=== PATIENT | female | born 1990 | race Caucasian/White ===

== ENCOUNTER 2017-07-01 21:18 | Inpatient (IN) | payer MEDICAID ==
[~2017-07-01] VITALS: Ht 157.5 cm; Wt 73.5 kg
[2017-07-01] MEDS ORDERED: PNV1TABL76 MT (23:39)
[2017-07-01] MEDS ORDERED: LACTATED RINGERS 1,000 ML IV SCH (23:44)
[2017-07-01] MEDS ORDERED: BUTORPHANOL TARTRATE 2 MG/ML VIAL IV PRN (23:45)
[2017-07-01] MEDS ORDERED: LIDOCAINE HCL/PF 1% 10 MG/ML 5ML VIAL IJ SCH (23:45)
[2017-07-01] MEDS ORDERED: METHYLERGONOVINE MALEATE 0.2 MG/ML IM PRN (23:45)
[2017-07-01] MEDS ORDERED: NALOXONE HCL 0.4 MG/ML 1ML VIAL IM PRN (23:45)
[2017-07-01] MEDS ORDERED: CARBOPROST TROMETHAMINE 250 MCG/ML AMPUL IM PRN (23:45)
[2017-07-02 00:09] LABS: CLARITY URINE CLEAR (CLEAR); COLOR URINE YELLOW (YELLOW); KETONES URINE TRACE (NEGATIVE); LEUKOCYTE ESTERASE URINE 2+ (NEGATIVE); NITRITE URINE NEGATIVE (NEGATIVE); OCCULT BLOOD URINE 3+ (NEGATIVE); PH URINE 5.5 (4.5-8.0); PROTEIN URINE TRACE (NEGATIVE); SPECIFIC GRAVITY URINE 1.032 (1.005-1.030)
[2017-07-02 00:11] LABS: BASOPHILS % 0.4 % (0.0-2.0); EOSINOPHILS % 0.7 % (0.0-5.0); HEMATOCRIT. 27.6 % (36.0-48.0); HEMOGLOBIN. 8.6 g/dL (12.0-16.0); LYMPHOCYTES % 25.3 % (20.0-50.0); MEAN CORPUSCULAR HEMOGLOBIN 21.4 pg (28.0-32.0); MEAN CORPUSCULAR VOLUME 68.4 fL (81.0-99.0); MEAN PLATELET VOLUME 9.4 fl (7.4-10.4); MONOCYTES % 6.6 % (2.0-8.0); PLATELET 293 x1000/uL (130-400); RED BLOOD CELL COUNT 4.03 mill/uL (4.2-5.4); RED CELL DISTRIBUTION WIDTH 16.9 % (11.6-14.6)
[2017-07-02 00:16] LABS: INR 0.9; PARTIAL THROMBOPLASTIN TIME 26.7 sec (23.4-31.0); PROTHROMBIN TIME 9.4 sec (9.4-11.6)
[2017-07-02 00:22] LABS: *AMPHETAMINES SCREEN URINE NEGATIVE (NEGATIVE); *BARBITURATES SCREEN URINE NEGATIVE (NEGATIVE); *BENZODIAZEPINES SCREEN URINE NEGATIVE (NEGATIVE); *COCAINE SCREEN URINE NEGATIVE (NEGATIVE); METHADONE URINE SCREEN NEGATIVE (NEGATIVE); OPIATES URINE SCREEN NEGATIVE (NEGATIVE)
[2017-07-02 00:23] LABS: CANNABINOID URINE SCREEN NEGATIVE (NEGATIVE); PHENCYCLIDINE URINE SCREEN NEGATIVE (NEGATIVE)
[2017-07-02] MEDS: DEXT 5%/LR + PITOCIN 20UNITS/L 1,000 ML IV SCH ×2 (03:20→04:19)
[2017-07-02] MEDS ORDERED: DEXT 5%/LR + PITOCIN 20UNITS/L 1,000 ML IV SCH (04:02)
[2017-07-02] MEDS ORDERED: ACETAMINOPHEN WITH CODEINE 300/30MG TABLET PO PRN ×2 (04:15)
[2017-07-02] MEDS ORDERED: DIPHENHYDRAMINE 25MG CAPSULE PO PRN (04:15)
[2017-07-02] MEDS ORDERED: BISACODYL 10MG SUPP PR PRN (04:15)
[2017-07-02] MEDS ORDERED: LANOLIN OINT 0.25 GM TUBE TOP PRN (04:15)
[2017-07-02] MEDS ORDERED: BENZOCAINE/LANOLIN/ALOE VERA SPRAY TOP PRN (04:15)
[2017-07-02] MEDS ORDERED: HEMORRHOIDAL SUPP PR PRN (04:15)
[2017-07-02] MEDS ORDERED: GLYCERIN/WITCH HAZEL LEAF MEDICATED PAD TOP PRN (04:15)
[2017-07-02 04:30] VITALS: BP 102/59
[2017-07-02 05:00] VITALS: BP 95/51
[2017-07-02 08:30] VITALS: BP 98/74
[2017-07-02] MEDS: IBUPROFEN 400MG TABLET PO PRN ×2 (10:01→23:15)
[2017-07-02] MEDS: PRENATAL VIT/FE FUMARATE/FA TABLET PO SCH (10:01)
[2017-07-02 11:17] LABS: HEPATITIS B SURFACE ANTIGEN NEGATIVE; RUBELLA IGG 6.2 IU/mL (4.99-10)
[2017-07-02 15:54] VITALS: BP 93/53
[2017-07-02] MEDS: DOCUSATE SODIUM 100MG CAPSULE PO SCH (21:04)
[2017-07-02 22:00] VITALS: BP 98/59
[2017-07-03 06:00] VITALS: BP 99/57
[2017-07-03 06:47] LABS: BASOPHILS % 0.5 % (0.0-2.0); HEMATOCRIT. 23.4 % (36.0-48.0); HEMOGLOBIN. 7.2 g/dL (12.0-16.0); MEAN CORPUSCULAR VOLUME 68.5 fL (81.0-99.0); MEAN PLATELET VOLUME 9.4 fl (7.4-10.4); MONOCYTES % 5.7 % (2.0-8.0); NEUTROPHILS % 65.8 % (40.0-76.0); PLATELET 239 x1000/uL (130-400); RED BLOOD CELL COUNT 3.41 mill/uL (4.2-5.4); RED CELL DISTRIBUTION WIDTH 17.1 % (11.6-14.6)
[2017-07-03 08:00] VITALS: BP 91/53
[2017-07-03] MEDS ORDERED: TETANUS, DIPHTHERIA, PERTUSSIS VAC/PF 0.5ML (>7YR OLD) IM ONE ×2 (09:00→10:00)
[2017-07-03] MEDS ORDERED: MEASLES,MUMPS&RUBELLA VACCINE 1 VIAL SUBCUT ONE (09:00)
[2017-07-03] MEDS: PRENATAL VIT/FE FUMARATE/FA TABLET PO SCH (09:24)
[2017-07-03] MEDS: IBUPROFEN 400MG TABLET PO PRN (09:24)
[2017-07-03 13:41] LABS: PLATELET ESTIMATE NORMAL
[2017-07-03] MEDS: FERROUS SULFATE 325MG TABLET PO SCH ×2 (14:28→17:53)
[2017-07-03 15:54] VITALS: BP 102/61
[2017-07-03 20:00] VITALS: BP 105/59
[2017-07-03] MEDS: DOCUSATE SODIUM 100MG CAPSULE PO SCH (21:09)
[2017-07-04 07:30] VITALS: BP 99/61
[2017-07-04] MEDS: PRENATAL VIT/FE FUMARATE/FA TABLET PO SCH (08:13)
[2017-07-04] MEDS: FERROUS SULFATE 325MG TABLET PO SCH (08:13)
== END 2017-07-04 15:15 | disposition home or self-care (01) | DRG 560 ==
LOC: L&D 21:18 → OBSVTOIN 21:18 → 7EST PP/OB 07-02 04:30
PROVIDERS: ADMIT Specialist; ATTEND Specialist
PROC: 10E0XZZ Delivery of Products of Conception, External Approach (ICD-10-PCS; principal; 2017-07-02 02:32)
DX: O99.02 Anemia complicating childbirth (principal); O99.344 Other mental disorders complicating childbirth; O98.52 Other viral diseases complicating childbirth; D64.9 Anemia, unspecified; F32.9 Major depressive disorder, single episode, unspecified; Z3A.40 40 weeks gestation of pregnancy; Z37.0 Single live birth; Z82.49 Family history of ischemic heart disease and other diseases of the circulatory system
CPT/HCPCS: 36415; 80305; 81003; 85025; 85610; 85730; 86592; 86703; 86762; 86850; 86900; 87086; 87340; 90707; 90715; G0378; J0595; J2310; J2590; J3490; J7120; A4315